=== PATIENT | female | born 1985 | race Two or more races ===

== ENCOUNTER 2019-06-08 09:29 | Observation (INO) | payer MEDICAID ==
[2019-06-08] MEDS ORDERED: PREN-96 PO (10:37)
== END 2019-06-08 11:00 | disposition home or self-care (01) | DRG 566 ==
LOC: LDRP 09:29
PROVIDERS: ADMIT Specialist; ATTEND Specialist
DX: O24.419 Gestational diabetes mellitus in pregnancy, unspecified control (principal); Z3A.34 34 weeks gestation of pregnancy
CPT/HCPCS: 59025; 76818; 81002; G0378

== ENCOUNTER 2019-06-11 10:03 | Observation (INO) | payer MEDICAID ==
[~2019-06-11] VITALS: Ht 160 cm; Wt 115.2 kg
[~2019-06-11 10:03] MED LIST: PREN-96 PO
[2019-06-11] MEDS ORDERED: NIFEdipine 10 MG CAP PO ONE (13:15)
== END 2019-06-11 14:40 | disposition home or self-care (01) | DRG 566 ==
LOC: LDRP 10:03
PROVIDERS: ADMIT Specialist; ATTEND Specialist
DX: O24.419 Gestational diabetes mellitus in pregnancy, unspecified control (principal); Z3A.34 34 weeks gestation of pregnancy
CPT/HCPCS: 59025; 76818; 81002; G0378

== ENCOUNTER 2019-06-15 09:14 | Observation (INO) | payer MEDICAID ==
[2019-06-15] MEDS ORDERED: NIF10C PO (10:09)
== END 2019-06-15 10:42 | disposition home or self-care (01) | DRG 563 ==
LOC: LDRP 09:15
PROVIDERS: ADMIT Obstetrics & Gynecology; ATTEND Obstetrics & Gynecology
DX: O60.03 Preterm labor without delivery, third trimester (principal); O24.419 Gestational diabetes mellitus in pregnancy, unspecified control; Z3A.35 35 weeks gestation of pregnancy
CPT/HCPCS: 59025; 76818; 81002; 82948; 82962; G0378

== ENCOUNTER 2019-06-22 10:26 | Observation (INO) | payer MEDICAID ==
[~2019-06-22 10:26] MED LIST changes: +NIF10C PO
== END 2019-06-22 12:00 | disposition home or self-care (01) | DRG 566 ==
LOC: LDRP 10:26
PROVIDERS: ADMIT Specialist; ATTEND Specialist
DX: O24.419 Gestational diabetes mellitus in pregnancy, unspecified control (principal); Z3A.36 36 weeks gestation of pregnancy
CPT/HCPCS: 59025; 76818; 81002; 82948; 82962; G0378

== ENCOUNTER 2019-06-29 10:41 | Observation (INO) | payer MEDICAID | END 2019-06-29 12:00 | disposition home or self-care (01) | DRG 566 | LOC: LDRP 10:41 | PROVIDERS: ADMIT Obstetrics & Gynecology; ATTEND Obstetrics & Gynecology | DX: O24.419 Gestational diabetes mellitus in pregnancy, unspecified control (principal); O36.8330 Maternal care for abnormalities of the fetal heart rate or rhythm, third trimester, not applicable or unspecified; Z3A.37 37 weeks gestation of pregnancy | CPT/HCPCS: 59025; 76818; 81002; 82962; G0378 ==

== ENCOUNTER 2019-07-02 08:14 | Observation (INO) | payer MEDICAID ==
[2019-07-02] MEDS ORDERED: GLYB2.5T8 PO (09:17)
== END 2019-07-02 09:48 | disposition home or self-care (01) | DRG 566 ==
LOC: LDRP 08:14
PROVIDERS: ADMIT Obstetrics & Gynecology; ATTEND Obstetrics & Gynecology
DX: O24.419 Gestational diabetes mellitus in pregnancy, unspecified control (principal); Z3A.37 37 weeks gestation of pregnancy
CPT/HCPCS: 76818; G0378

== ENCOUNTER 2019-07-05 10:18 | Observation (INO) | payer MEDICAID ==
[~2019-07-05 10:18] MED LIST changes: +GLYB2.5T8 PO; -NIF10C PO
== END 2019-07-05 12:07 | disposition home or self-care (01) | DRG 566 ==
LOC: LDRP 10:18
PROVIDERS: ADMIT Specialist; ATTEND Specialist
DX: O24.113 Pre-existing type 2 diabetes mellitus, in pregnancy, third trimester (principal); Z3A.37 37 weeks gestation of pregnancy
CPT/HCPCS: 76818; 82962; G0378; 59025; 81002

== ENCOUNTER 2019-07-08 10:21 | Observation (INO) | payer MEDICAID | END 2019-07-08 13:57 | disposition home or self-care (01) | DRG 566 | LOC: LDRP 10:21 | PROVIDERS: ADMIT Obstetrics & Gynecology; ATTEND Obstetrics & Gynecology | DX: O24.419 Gestational diabetes mellitus in pregnancy, unspecified control (principal); Z3A.38 38 weeks gestation of pregnancy | CPT/HCPCS: 59025; 76818; 81002; 82948; 82962; G0378 ==

== ENCOUNTER 2019-07-12 10:33 | Observation (INO) | payer MEDICAID ==
[~2019-07-12] VITALS: Ht 160 cm; Wt 116.6 kg
[2019-07-12] MEDS ORDERED: CEFTRIAXONE SODIUM 2 GM in D5W 5% 50 ML IV ONE (11:30)
[2019-07-12] MEDS ORDERED: SODIUM CHLORIDE 0.9% 1,000 ML IV ONE (12:00)
== END 2019-07-12 11:10 | disposition home or self-care (01) | DRG 566 ==
LOC: LDRP 10:33
PROVIDERS: ADMIT Specialist; ATTEND Specialist
DX: O24.419 Gestational diabetes mellitus in pregnancy, unspecified control (principal); Z3A.38 38 weeks gestation of pregnancy
CPT/HCPCS: 59025; 76818; 81002; 82948; 82962; G0378; J0696; J7060; 96361

== ENCOUNTER 2019-07-15 13:06 | Observation (INO) | payer MEDICAID | END 2019-07-15 14:45 | disposition home or self-care (01) | DRG 566 | LOC: LDRP 13:06 | PROVIDERS: ADMIT Specialist; ATTEND Specialist | DX: O24.419 Gestational diabetes mellitus in pregnancy, unspecified control (principal); Z3A.39 39 weeks gestation of pregnancy | CPT/HCPCS: 59025; 76818; 81002; 82948; 82962; G0378 ==

== ENCOUNTER 2019-07-19 08:25 | Inpatient (IN) | payer MEDICAID ==
[~2019-07-19] VITALS: Ht 160 cm; Wt 115.7 kg
[2019-07-19] MEDS ORDERED: LACT. RINGERS/OXYTOCIN 20UNITS 1,000 ML IV SCH (09:16)
[2019-07-19] MEDS ORDERED: PHISODERM TOP SOLN 240ML BTL TOP PRN (09:30)
[2019-07-19] MEDS ORDERED: WITCH HAZEL-GLYCERIN PAD TOP PRN (09:30)
[2019-07-19] MEDS ORDERED: LIDOCAINE 2%HCL (LOCAL ANESTH.) INJ 20ML MDV ID ONE (09:30)
[2019-07-19] MEDS ORDERED: DERMOPLAST 60ML BOTTLE TOP PRN (09:30)
[2019-07-19 10:08] LABS: Basophils # (auto) 0 uL; Eosinophils # (auto) 0.1 uL; Mean Corpuscular Hemoglobin 26.6 pg (28.0-32.0); Monocytes # (auto) 0.4 uL; Nucleated Red Blood Cells % 0.1 %; Red Cell Distribution Width 16.7 % (11.8-14.3)
[2019-07-19 10:10] LABS: Basophils % (auto) 0.6 % (0.0-2.0); Eosinophils % (auto) 1.2 % (0.0-7.0); Hematocrit 37.5 % (36.0-46.0); Hemoglobin 12.6 g/dL (12.2-16.2); Lymphocytes # (auto) 1.8 uL; Lymphocytes % (auto) 23.5 % (10.0-50.0); Mean Corpuscular Hgb Conc. 33.5 g/dL (32.0-36.0); Mean Corpuscular Volume 79.4 fL (80.0-100.0); Neutrophils # (auto) 5.4 uL; Neutrophils % (auto) 69.7 % (37.0-80.0); Platelet Count (auto) 189 10^3/uL (140-450); Red Blood Cells 4.72 10^6/uL (4.0-5.20); White Blood Cell 7.7 10^3/uL (4.4-10.8)
[2019-07-19 10:19] LABS: Urine Bacteria FEW /hpf (None Seen); Urine Blood Negative /uL (Negative); Urine Mucus FEW (None Seen); Urine Specific Gravity 1.016 (1.001-1.035); Urine WBC 15 /hpf (0 - 5)
[2019-07-19 10:28] LABS: Albumin 2.5 g/dL (3.4-5.0); Calcium 8.2 mg/dL (8.5-10.1); Potassium 3.5 mmol/L (3.5-5.1)
[2019-07-19 10:30] LABS: BUN/Creatinine Ratio 17.7
[2019-07-19 10:32] LABS: INR 0.96 (0.9-1.15); Partial Thromboplastin Time 29.4 sec (23.64-32.05)
[2019-07-19 10:34] LABS: Bilirubin, Total 0.9 mg/dL (0.2-1.0); Total Protein 7.4 g/dL (6.4-8.2)
[2019-07-19] MEDS: LACTATED RINGER'S 1,000 ML IV SCH ×2 (10:37→18:42)
[2019-07-19] MEDS ORDERED: NALBUPHINE HCL 10 MG/1ml INJECTION ONE (22:37)
[2019-07-19] MEDS ORDERED: NALBUPHINE HCL 10 MG/1ml INJECTION IV PRN (22:45)
[2019-07-20 05:06] LABS: RPR Non Reactive (Non Reactive)
[2019-07-20] MEDS ORDERED: fentaNYL W ROPIVACAINE 150 ML EPI SCH (05:45)
[2019-07-20] MEDS ORDERED: fentaNYL CITRATE 100 MCG/2 ML VL IV ONE (05:45)
[2019-07-20] MEDS ORDERED: NALOXONE HCL 0.4 MG/ML VIAL IV ONE (05:45)
[2019-07-20] MEDS ORDERED: LIDOCAINE HCL 2 %PF INJ 10ML AMP IJ ONE (05:45)
[2019-07-20] MEDS ORDERED: ePHEDrine SULFATE 50 MG/ML AMP IV ONE (05:45)
[2019-07-20] MEDS: LACTATED RINGER'S 1,000 ML IV SCH ×2 (06:00→11:48)
[2019-07-20] MEDS ORDERED: SODIUM CHLORIDE 0.9% 250 ML IUPC ONE (07:39)
[2019-07-20] MEDS ORDERED: LACTATED RINGER'S 1,000 ML IV ONE (07:45)
[2019-07-20] MEDS: ACCU-CHEK COMFORT CURVE STRIP VI SCH ×2 (07:47→13:30)
[2019-07-20] MEDS: SODIUM CHLORIDE 0.9% 1,000 ML IUPC SCH ×2 (08:52→11:48)
[2019-07-20] MEDS ORDERED: LIDOCAINE 2%HCL (LOCAL ANESTH.) INJ 20ML MDV ONE (14:19)
[2019-07-20] MEDS: IBUPROFEN 600 MG TAB PO PRN ×2 (16:48→21:56)
--- NOTE | 2019-07-20 18:30 | NUR ---
Ambulation: Patient OOB with standby assistance by RN. Patient ambulated to bathroom with steady gait. Patient able to void without difficulty, 800cc silva colored urine. [facility]icare teaching provided with returned demonstration by patient. Clean gown provided and bed linen changed. Patient ambulated back to chair next to bed with steady gait and no distress noted.
--- NOTE | 2019-07-20 19:00 | NUR ---
Bottle-feeding Education: Patient encouraged to breastfeed. Benefits of and the risk of providing formula to was discussed. Patient verbalized understanding of the benefits and is aware of risk and insists on bottle-feeding. Formula provided and instruction on formula preparation from the [facility] booklet reviewed with patient.
[2019-07-20] MEDS ORDERED: INFLUENZA QUAD 2019-2020 0.5ml SYRG IM ONE (19:30)
[2019-07-20 22:40] VITALS: BP 111/59
[2019-07-21] MEDS: IBUPROFEN 600 MG TAB PO PRN ×3 (02:44→11:31)
[2019-07-21 06:53] VITALS: BP 102/58
[2019-07-21 10:55] VITALS: BP 122/60
[2019-07-21] MEDS ORDERED: MEASLES, MUMPS & RUBELLA VAC(MMRII) 0.5ML SC ONE (13:45)
[2019-07-21] MEDS ORDERED: INFLUENZA QUAD 2019-2020 0.5ml SYRG IM ONE (13:45)
[2019-07-21] MEDS ORDERED: TETANUS-DIPTH-ACEL PERTUSSIS 0.5ML SYRG IM ONE (13:45)
[2019-07-21 14:08] VITALS: BP 124/69
--- NOTE | 2019-07-21 14:38 | NUR ---
Discharge: Discharge instructions given as ordered. Pt encouraged to follow up with [facility] as instructed. All questions and concerns addressed. Patient verbalized understanding. Medication reconciliation completed and copy given to patient. All required/requested vaccines given and copies of vaccinations given to patient.
--- NOTE | 2019-07-21 15:55 | NUR ---
Discharge: Patient taken to vehicle via wheelchair with all personal belongings, accompanied by staff and family member. No distress noted at time of departure, no adverse changes in status since initial assessment.
== END 2019-07-21 15:55 | disposition home or self-care (01) | DRG 560 ==
LOC: LDRP 08:25 → OBSVTOIN 08:25
PROVIDERS: ADMIT Specialist; ATTEND Specialist
PROC: 10D07Z6 Extraction of Products of Conception, Vacuum, Via Natural or Artificial Opening (ICD-10-PCS; principal; 2019-07-20)
PROC: 3E0R3BZ Introduction of Anesthetic Agent into Spinal Canal, Percutaneous Approach (ICD-10-PCS; 2019-07-20)
PROC: 00HU33Z Insertion of Infusion Device into Spinal Canal, Percutaneous Approach (ICD-10-PCS; 2019-07-20)
PROC: 0W8NXZZ Division of Female Perineum, External Approach (ICD-10-PCS; 2019-07-20)
PROC: 10907ZC Drainage of Amniotic Fluid, Therapeutic from Products of Conception, Via Natural or Artificial Opening (ICD-10-PCS; 2019-07-20)
PROC: 3E033VJ Introduction of Other Hormone into Peripheral Vein, Percutaneous Approach (ICD-10-PCS; 2019-07-20)
PROC: 10H07YZ Insertion of Other Device into Products of Conception, Via Natural or Artificial Opening (ICD-10-PCS; 2019-07-20)
DX: O13.4 Gestational [pregnancy-induced] hypertension without significant proteinuria, complicating childbirth (principal); O36.63X0 Maternal care for excessive fetal growth, third trimester, not applicable or unspecified; O69.81X0 Labor and delivery complicated by cord around neck, without compression, not applicable or unspecified; O77.0 Labor and delivery complicated by meconium in amniotic fluid; O66.0 Obstructed labor due to shoulder dystocia; Z3A.39 39 weeks gestation of pregnancy; Z37.0 Single live birth
CPT/HCPCS: 36415; 51702; 59025; 59200; 59409; 62282; 76805; 80053; 81001; 81002; 82947; 82948; 82962; 84112; 85025; 85610; 85730; 86592; 86850; 86900; 86901; 90471; 94760; 96365; 96366; 96372; 96374; G0378; J2590; J3010

== ENCOUNTER 2024-09-09 14:41 | Emergency (ER) | payer SELFPAY ==
[~2024-09-09] VITALS: Ht 160 cm; Wt 96.3 kg
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
--- NOTE | 2024-09-09 16:12 | DVH ---
CLINICAL INDICATION: pain, trauma TECHNIQUE: 3 radiographic views of the right shoulder were obtained. Comparison: None FINDINGS/IMPRESSION: There is no evidence of acute fracture or dislocation. The visualized joint space is well maintained. The alignment is anatomical. There is no radiopaque foreign body.
--- NOTE | 2024-09-09 16:16 | DVH ---
CLINICAL INDICATION: pain, trauma TECHNIQUE: 3 radiographic views of the right elbow were obtained. Comparison: None FINDINGS/IMPRESSION: There is no evidence of acute fracture or dislocation. The visualized joint space is well maintained. The alignment is anatomical. There is no radiopaque foreign body.
[2024-09-09 16:26] VITALS: BP 130/80
[2024-09-09] MEDS: KETOROLAC TROMETH 60MG/2ML VIAL IM ONE (16:30)
[2024-09-09 16:32] VITALS: PULSE 90; RESP 18; TEMP 98; O2SAT 99
[2024-09-09] MEDS ORDERED: BACL10TA PO (16:46)
[2024-09-09] MEDS ORDERED: IBUP1TAB5 PO (16:46)
== END 2024-09-09 17:07 | disposition home or self-care (01) ==
LOC: ER 14:41
DX: S16.1XXA Strain of muscle, fascia and tendon at neck level, initial encounter (principal); S49.91XA Unspecified injury of right shoulder and upper arm, initial encounter; M25.521 Pain in right elbow; V89.2XXA Person injured in unspecified motor-vehicle accident, traffic, initial encounter; Y93.89 Activity, other specified; Y92.89 Other specified places as the place of occurrence of the external cause; Y99.8 Other external cause status
CPT/HCPCS: 73030; 73080; 96372; 99284; J1885